=== PATIENT | male | born 1940 | race Asian ===

== ENCOUNTER 2023-06-05 03:10 | Emergency (ER) | payer MEDICARE ==
[~2023-06-05] VITALS: Ht 177.8 cm; Wt 72.6 kg
[2023-06-05 03:15] VITALS: BP_SYST 190; BP_SYST 198; BP_DIAS 87; BP_DIAS 94; PULSE 58; TEMP 96.3; TEMP 96.4; O2SAT 93
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
--- NOTE | 2023-06-05 05:00 | NUR ---
BLOOD DIANEMEN SENT TO LAB
[2023-06-05] MEDS ORDERED: MORPHINE SULFATE 4 MG/ML SYR IVP ONE (05:15)
--- NOTE | 2023-06-05 05:16 | NUR ---
ERMD at bedside, updating the condition of the patient and explainig regarding the transfer to trauma hospital
[2023-06-05 05:18] LABS: BASOPHILS % (AUTO) 0.3 % (0.0-2.0); EOSINOPHILS # (AUTO) 0.1 K/uL (0-0.4); EOSINOPHILS % (AUTO) 1.2 % (0.0-4.0); HEMATOCRIT 35.4 % (36-52); LYMPHOCYTES # (AUTO) 0.9 K/uL (2.0-11.5); LYMPHOCYTES % (AUTO) 10.2 % (20.5-51.1); MEAN CORPUSCULAR HEMOGLOBIN 31 pg (27-31); MEAN CORPUSCULAR HGB CONC 34 g/dL (33-37); MEAN CORPUSCULAR VOLUME 92.3 fL (80-94); MONOCYTES # (AUTO) 0.6 K/uL (0.8-1.0); MONOCYTES % (AUTO) 6.1 % (1.7-9.3); NEUTROPHILS # (AUTO) 7.4 K/uL (1.8-7.7); NEUTROPHILS % (AUTO) 82.2 % (42.2-75.2); PLATELET COUNT (AUTO) 158 K/uL (140-450); RED BLOOD CELL COUNT(AUTO) 3.83 MIL/uL (4.20-6.10); RED CELL DISTRIBUTION WIDTH 13.6 % (11.6-13.7)
[2023-06-05] MEDS ORDERED: NACL 0.9% 1,000 ML IV ONE (05:25)
--- NOTE | 2023-06-05 05:30 | NUR ---
CALLED [facility] FOR STAT TRANSFER. SPOKE WITH GLORIA. WILL HAVE ED DOCTOR CONTACT.
[2023-06-05 05:34] LABS: APPEARANCE,URINE CLEAR (CLEAR); BILIRUBIN,URINE NEGATIVE (NEGATIVE); BLOOD, URINE NEGATIVE (NEGATIVE); COLOR,URINE YELLOW (YELLOW); LEUKOCYTE ESTERASE ,URINE NEGATIVE (NEGATIVE); NITRITE, URINE NEGATIVE (NEGATIVE); PH,URINE 6.5 (5.0-9.0); UGLUCOSE NEGATIVE (NEGATIVE)
--- NOTE | 2023-06-05 05:40 | NUR ---
FAXED FACESHEET AND CLINICALS TO [facility].
[2023-06-05 05:41] LABS: ALBUMIN 3.7 g/dL (3.4-5.0); ANION GAP 7.8 (8-16); ASPARTATE AMINOTRANSFERASE 31 U/L (15-37); CARBON DIOXIDE 34.3 mmol/L (21-32); CHLORIDE 100 mmol/L (98-107); CREATININE 0.9 mg/dL (0.6-1.3); GLUCOSE 125 mg/dL (74-106); POTASSIUM 4.1 mmol/L (3.5-5.1); SODIUM SERUM 138 mmol/L (136-145); TOTAL BILIRUBIN 0.5 mg/dL (0.0-1.0); UREA NITROGEN, BLOOD 22 mg/dL (7-18)
[2023-06-05] MEDS ORDERED: SOLI10TA PO (05:47)
[2023-06-05] MEDS ORDERED: LYR25 PO (05:47)
[2023-06-05] MEDS ORDERED: TRAZ-343 PO (05:47)
[2023-06-05] MEDS ORDERED: TAMS0.4C96 PO (05:47)
[2023-06-05] MEDS ORDERED: DULO20EC PO (05:47)
[2023-06-05] MEDS ORDERED: IBUP-2213 PO (05:47)
[2023-06-05] MEDS ORDERED: DOCU-299 PO (05:47)
[2023-06-05] MEDS ORDERED: MELA5TAB6 PO (05:47)
[2023-06-05] MEDS ORDERED: LABETALOL 20 MG/4 ML VIAL IVP ONE (06:10)
[2023-06-05] MEDS ORDERED: levETIRAcetam 500 MG in NACL 0.9% 100 ML IV ONE (06:10)
[2023-06-05] MEDS ORDERED: levETIRAcetam 100 MG/ML VIAL IV ONE (06:16)
--- NOTE | 2023-06-05 06:20 | NUR ---
Informed Eliseo Salazar,health care facilities inspector from [facility] for senior updating the condition of the pt and informed regarding the transfer to [facility]
--- NOTE | 2023-06-05 06:24 | NUR ---
CONTACTED KAREEN FOR TXFR TO [facility]
--- NOTE | 2023-06-05 06:30 | NUR ---
report given to Avril ED charge Nurse. Avril, ED charge Nurse verbalized understanding and no further question
[2023-06-05 06:51] VITALS: BP 170/83; PULSE 60; RESP 12; TEMP 96.6; O2SAT 95
--- NOTE | 2023-06-05 06:51 | NUR ---
report given to KAREEN Johns. KAREEN Johns verbalized understanding and no further question.
--- NOTE | 2023-06-05 06:51 | NUR ---
Patient to be transferred to [facility]. Is being transferred due to referal to higher center. Receiving facility has accepting physician and available space. ER physician has signed transfer form. Patient or responsible constitution party has agreed to transfer and signed form. Patient belongings inventoried and will be sent with patient. Copy of nursing notes, lab reports, EKG, Physicians Orders and X-rays to be sent with patient. Report called to Avril ED charge Nurse at receiving facility. [facility] ambulance service has been called for transfer.
[2023-06-05 07:00] LABS: LIPASE 39 U/L (73-393)
== END 2023-06-05 06:51 | disposition short-term general hospital (02) ==
LOC: MED 03:10
DX: S22.49XA Multiple fractures of ribs, unspecified side, initial encounter for closed fracture (principal); S06.5X0A Traumatic subdural hemorrhage without loss of consciousness, initial encounter; F32.9 Major depressive disorder, single episode, unspecified; Z79.899 Other long term (current) drug therapy; W07.XXXA Fall from chair, initial encounter; Y93.89 Activity, other specified; Y92.098 Other place in other non-institutional residence as the place of occurrence of the external cause; Y99.8 Other external cause status
CPT/HCPCS: 36415; 70450; 71045; 72125; 80053; 81003; 82553; 83690; 84484; 85025; 85610; 85730; 86886; 86900; 86901; 93005; 96361; 96365; 96375; 99291; G0482; J1953; J2270; J3490; Q0092